=== PATIENT | female | born 1945 | race Caucasian/White ===

== ENCOUNTER → 2018-02-01 | Outpatient (CLI) | payer OTHER | END | disposition home or self-care (01) | LOC: CVU 14:32 | PROVIDERS: ATTEND Surgery | DX: I65.21 Occlusion and stenosis of right carotid artery (principal); J44.9 Chronic obstructive pulmonary disease, unspecified; E78.5 Hyperlipidemia, unspecified; Z99.81 Dependence on supplemental oxygen; Z87.891 Personal history of nicotine dependence | CPT/HCPCS: 93880 ==

== ENCOUNTER → 2018-10-03 | Outpatient (CLI) | payer MEDICARE | END | disposition home or self-care (01) | LOC: CVU 13:19 | PROVIDERS: ATTEND Surgery | DX: I65.23 Occlusion and stenosis of bilateral carotid arteries (principal); J44.1 Chronic obstructive pulmonary disease with (acute) exacerbation; Z95.0 Presence of cardiac pacemaker; Z72.0 Tobacco use | CPT/HCPCS: 93880 ==

== ENCOUNTER → 2019-08-02 | Outpatient (CLI) | payer MEDICARE | END | disposition home or self-care (01) | LOC: CVU 15:55 | PROVIDERS: ATTEND Surgery | DX: I65.23 Occlusion and stenosis of bilateral carotid arteries (principal); I87.1 Compression of vein | CPT/HCPCS: 93880 ==

== ENCOUNTER 2020-12-09 12:21 | Day surgery (SDC) | payer MEDICARE ==
[~2020-12-09] VITALS: Ht 152.4 cm; Wt 53.0 kg
[~2020-12-09 12:21] MED LIST: VISIPAQUE 270 MG/ML, 150ML BOTTLE ONE
[2020-12-09] MEDS ORDERED: LIDOCAINE 1%, 10ML ONE (13:53)
[2020-12-09] MEDS ORDERED: FENTANYL PF 100 MCG/2ML ONE (13:58)
[2020-12-09 13:59] VITALS: BP 154/82
[2020-12-09] MEDS ORDERED: HEPARIN 1,000 UNITS/ML, 10ML ONE (13:59)
[2020-12-09] MEDS ORDERED: FLUMAZENIL 0.1 MG/1 ML, 5ML ONE (13:59)
[2020-12-09] MEDS ORDERED: PROTAMINE SULFATE 10 MG/ML, 25ML ONE (13:59)
[2020-12-09] MEDS ORDERED: MIDAZOLAM 1 MG/ML, 5ML ONE (13:59)
[2020-12-09] MEDS ORDERED: NALOXONE 1 MG/ML, 2ML ONE (13:59)
[2020-12-09 14:00] LABS: ANION GAP 5 mmol/L (5-15); CALCIUM 9.4 mg/dL (8.5-10.1); CHLORIDE 104 mmol/L (98-107); CREATININE 0.97 mg/dL (0.55-1.02)
[2020-12-09 14:06] LABS: BASOPHILS % (AUTO) 1 % (0-1); EOSINOPHILS % (AUTO) 7 % (1-7); LYMPHOCYTES % (AUTO) 20 % (22-44); MEAN CORPUSCULAR HEMOGLOBIN 29.3 pg (27.0-34.8); MEAN CORPUSCULAR HGB CONC 33.5 g/dL (32.4-35.8); MEAN PLATELET VOLUME 7.9 fL (7.4-10.4); MONOCYTES % (AUTO) 9 % (2-9); NEUTROPHILS % (AUTO) 63 % (42-75); PLATELET COUNT 201 x10^3/uL (130-400); RED BLOOD COUNT 4.07 x10^6/uL (3.82-5.3); RED CELL DISTRIBUTION WIDTH 13.3 % (9.6-15.2)
[2020-12-09 14:24] LABS: MD NO
[2020-12-09] MEDS ORDERED: CEFAZOLIN PMX 1GM/50ML 100 ML ONE (14:29)
[2020-12-09] MEDS ORDERED: SODIUM CHLORIDE 0.9% 1,000 ML IV SCH (14:30)
[2020-12-09] MEDS ORDERED: morphine SULFATE 10 MG/ML, 1ML ONE (16:54)
[2020-12-09] MEDS ORDERED: MORPHINE SULFATE 4 MG/ML, 1ML IVPush PRN (17:00)
[2020-12-09] MEDS ORDERED: HYDROcodone/APAP 5/325 TABLET PO PRN (17:00)
== END 2020-12-09 18:20 | disposition home or self-care (01) ==
LOC: OUT 12:21
PROVIDERS: ATTEND Surgery
DX: I70.211 Atherosclerosis of native arteries of extremities with intermittent claudication, right leg (principal); J44.9 Chronic obstructive pulmonary disease, unspecified; I25.10 Atherosclerotic heart disease of native coronary artery without angina pectoris; Z98.890 Other specified postprocedural states; Z90.710 Acquired absence of both cervix and uterus; Z88.8 Allergy status to other drugs, medicaments and biological substances; Z72.89 Other problems related to lifestyle; Z95.0 Presence of cardiac pacemaker; Z82.49 Family history of ischemic heart disease and other diseases of the circulatory system
CPT/HCPCS: 36200; 36415; 75625; 75716; 80048; 85025; C1751; C1769; C1894; J0690; J2250; J2270; J3010; J7030; Q9966; 75710; 76937; J1644; J2720; J2310